=== PATIENT | female | born 1980 | race Caucasian/White ===

== ENCOUNTER → 2022-09-17 13:06 | Outpatient (CLI) | payer SELFPAY ==
[2022-09-17 14:20] LABS: Calcium 10.1 mg/dl (8.4-10.2)
[2022-09-17 14:32] LABS: 25-OH Vitamin D, Total 44.4 ng/mL (30-100)
[2022-09-17 14:37] LABS: Free T4 (Free Thyroxine) 1.16 ng/dl (0.78-2.19)
[2022-09-17 14:52] LABS: Thyroid Stimulating Hormone 0.63 uIU/mL (0.465-4.68)
[2022-09-19 12:58] LABS: Calcium, Ionized 5.1 mg/dL (4.5-5.6)
[2022-09-22 03:18] LABS: Triiodothyronine (T3) Free 6.3 pg/mL (2.0-4.4)
== END ==
PROVIDERS: PCP Family Medicine; Visit Provider Specialist
DX: E89.0 Postprocedural hypothyroidism (principal); E53.9 Vitamin B deficiency, unspecified; E83.52 Hypercalcemia
CPT/HCPCS: 36415; 82306; 82310; 82330; 84439; 84443; 84481

== ENCOUNTER 2023-09-21 15:11 | Outpatient (POV) | payer SELFPAY | END 2023-09-21 23:59 | disposition home or self-care (01) | LOC: SC 15:11 | PROVIDERS: PCP Family Medicine; Visit Provider Dermatology | DX: Z00.00 Encounter for general adult medical examination without abnormal findings (principal) ==